=== PATIENT | female | born 2000 | race Caucasian/White ===

== ENCOUNTER 2024-07-16 10:23 | Outpatient (CLI) | payer MEDICAID, SELFPAY ==
[2024-07-16] VITALS (8 sets, daily range): BP systolic 109–143; BP diastolic 58–81; PULSE 81–86; BMI 44.4
--- NOTE | 2024-07-16 10:34 | XR_ITS ---
Examination: Biophysical profile, ultrasound Date and time of exam: July 16, 2024 1141 hours INDICATIONS: Amniotic fluid index 5.5 cm on examination July 14, 2024 Technique: Multiple transabdominal sonographic images of the pelvis abdomen obtained. Attention is directed to the breathing movement, gross body movement, amniotic fluid volume and tone. Findings: Amniotic fluid index 7.9 cm Total biophysical profile is 8 of 8. breathing movement is 2. Gross body movement is 2. tone is 2. Qualitative amniotic fluid volume is 2 Impression: Biophysical profile is 8 of 8.
[2024-07-16 11:42] LABS: Collection Type, Urine Clean Catch
[2024-07-16 11:45] LABS: Basophils # (Auto) 0.1 Thou/mm3 (0.0-0.2); Basophils % (Auto) 1 % (0-2.5); Eosinophils # (Auto) 0.4 Thou/mm3 (0.0-0.5); Eosinophils % (Auto) 3 % (0-10); Hematocrit 32.8 % (36.0-46.0); Hemoglobin 11.2 g/dL (12.0-16.0); Immature Granulocytes % (Auto) 0 % (0-0); Immature Granulocytes Auto 0.04 Thou/mm3 (0.00-0.00); Lymphocytes % (Auto) 17 % (10-50); Mean Corpuscular HGB Conc 34.1 g/dl (31.0-37.0); Mean Corpuscular Volume 91 fL (80-100); Monocytes # (Auto) 1.1 Thou/mm3 (0.0-0.8); Monocytes % (Auto) 9 % (0-12); Neutrophils # (Auto) 8.3 Thou/mm3 (1.8-7.7); Neutrophils % (Auto) 70 % (37-80); Nucleated Red Blood Cell % 0 /100 WBC (0); Platelet Count 185 Thou/mm3 (140-440); RDW Standard Deviation 44.7 fL (36.4-46.3); Red Blood Count 3.61 Miln/mm3 (4.00-5.20); White Blood Count 11.8 Thou/mm3 (3.6-11.0)
[2024-07-16 11:59] LABS: Fibrinogen 439 mg/dL (175-375); INR 0.9 (0.9-1.3); Partial Thromboplastin Time 26.4 Seconds (22.0-36.0); Prothrombin Time 10.3 Seconds (9.0-12.2)
[2024-07-16 12:00] LABS: Bilirubin,Urine Negative (Negative); Blood,Urine Negative (Negative); Clarity,Urine Clear (Clear/Hazy); Color,Urine Lt-Yellow (Lt Yel-Yel); Glucose, Urine Negative (Negative); Ketones,Urine Negative (Negative); Leukocyte Esterase,Urine Positive (Negative); Nitrite,Urine Negative (Negative); Protein,Urine Negative (Neg - Trace); RBC,Urine 1 /hpf (0-3); Specific Gravity,Urine 1.016 (1.001-1.035); Squamous Epithelial Cell,Urine 3 /hpf (0-5); Urobilinogen,Urine Negative mg/dL (0.0-1.0); WBC,Urine 1 /hpf (0-5)
[2024-07-16 12:11] LABS: Alanine Aminotransferase < 7 U/L (10-49); Albumin, Serum 3.7 gm/dL (3.5-5.0); Albumin/Globulin Ratio 1.7 (1.2-2.2); Alkaline Phosphatase 113 U/L (46-116); Anion Gap 8 (7-16); Aspartate Amino Transferase 14 U/L (0-34); BUN/Creatinine Ratio 14 Ratio (12-20); Bilirubin,Total 0.4 mg/dL (0.3-1.2); Blood Urea Nitrogen 11 mg/dL (9-23); Calcium 9.2 mg/dL (8.3-10.6); Calcium (Corrected) 9.4 mg/dL (8.5-10.1); Carbon Dioxide 23.1 mMol/L (20.0-31.0); Chloride 105 mMol/L (98-107); Creatinine (Component) 0.8 mg/dL (0.6-1.3); Estimated Creatinine Clearance 107.1 mL/min (>60); Globulin 2.2 gm/dL (2.3-3.5); Glucose 76 mg/dL (74-106); LDH (Lactate Dehydrogenase) 155 U/L (120-246); Osmolality,Calculated 270 (275-295); Sodium 136 mMol/L (136-145); Total Protein 5.9 gm/dL (5.7-8.2); Uric Acid 7.8 mg/dL (3.1-7.8); eGFR > 60 See Note
== END 2024-07-16 12:25 | disposition home or self-care (01) ==
LOC: S4S1 10:30 → S4SX 10:30
PROVIDERS: Nurse Practitioner Women's Health; Referring Provider Obstetrics & Gynecology; Visit Provider Obstetrics & Gynecology
DX: Z34.03 Encounter for supervision of normal first pregnancy, third trimester (principal); Z36.89 Encounter for other specified antenatal screening; Z3A.37 37 weeks gestation of pregnancy
CPT/HCPCS: 36415; 59025; 76819; 80053; 81001; 83615; 84550; 85025; 85384; 85610; 85730

== ENCOUNTER 2024-07-27 09:14 | Outpatient (RCR) | payer MEDICAID, SELFPAY ==
--- NOTE | 2024-07-07 09:14 | XR_ITS ---
Examination: Biophysical profile, ultrasound Date and time of exam: July 07, 2024 1012 hours INDICATIONS: Diagnosis maternal obesity Technique: Multiple transabdominal sonographic images of the pelvis abdomen obtained. Attention is directed to the breathing movement, gross body movement, amniotic fluid volume and tone. Findings: Amniotic fluid index 11.2 cm Total biophysical profile is 8 of 8. breathing movement is 2. Gross body movement is 2. tone is 2. Qualitative amniotic fluid volume is 2 Impression: Biophysical profile is 8 of 8.
[2024-07-07 10:43] VITALS: BP 130/76; PULSE 110; RESP 16; TEMP 36.7
--- NOTE | 2024-07-14 08:18 | XR_ITS ---
Examination: Biophysical profile, ultrasound Date and time of exam: July 14, 2024 0823 hours INDICATIONS: Diagnosis maternal obesity Technique: Multiple transabdominal sonographic images of the pelvis abdomen obtained. Attention is directed to the breathing movement, gross body movement, amniotic fluid volume and tone. Findings: Amniotic fluid index 5.5 cm Total biophysical profile is 8 of 8. breathing movement is 2. Gross body movement is 2. tone is 2. Qualitative amniotic fluid volume is 2 Impression: Biophysical profile is 8 of 8.
[2024-07-14 08:49] VITALS: BP 125/69; PULSE 85; RESP 16; TEMP 36.8
--- NOTE | 2024-07-20 11:30 | XR_ITS ---
Examination: Biophysical profile, ultrasound Date and time of exam: July 20, 2024 1132 hrs. Indications: Diagnosis maternal obesity, small for gestational age Technique: Multiple transabdominal sonographic images of the pelvis abdomen obtained. Attention is directed to the breathing movement, gross body movement, amniotic fluid volume and tone. Findings: Amniotic fluid index 7.7 cm Total biophysical profile is 8 of 8. breathing movement is 2. Gross body movement is 2. tone is 2. Qualitative amniotic fluid volume is 2 Impression: Biophysical profile is 8 of 8.
[2024-07-20 12:00] VITALS: BP 132/07; PULSE 91; RESP 20; TEMP 37.2
--- NOTE | 2024-07-27 09:55 | XR_ITS ---
Examination: Biophysical profile, ultrasound Date and time of exam: July 27, 2024 0959 hrs. Indications: Diagnosis maternal obesity, small for gestational age Technique: Multiple transabdominal sonographic images of the pelvis abdomen obtained. Attention is directed to the breathing movement, gross body movement, amniotic fluid volume and tone. Findings: Amniotic fluid index 4.8 cm Total biophysical profile is 6 of 8. breathing movement is 2. Gross body movement is 2. tone is 2. Qualitative amniotic fluid volume is 0 Impression: Biophysical profile is 6 of 8.
[2024-07-27 10:38] VITALS: BP 132/62; PULSE 104; RESP 18; TEMP 37.2
== END 2024-07-27 23:59 | disposition home or self-care (01) ==
LOC: S4S1 09:14
PROVIDERS: PCP Physician Assistant; Referring Provider Nurse Practitioner Women's Health; Visit Provider Nurse Practitioner Women's Health
DX: O99.213 Obesity complicating pregnancy, third trimester (principal); E66.9 Obesity, unspecified; Z3A.38 38 weeks gestation of pregnancy
CPT/HCPCS: 59025; 76819

== ENCOUNTER 2024-07-27 10:50 | Inpatient (IN) | payer MEDICAID, SELFPAY ==
[2024-07-27] VITALS (14 sets, daily range): BP systolic 92–153; BP diastolic 55–101; PULSE 79–111; BMI 44.9
[2024-07-27] MEDS: RINGERS LACTATED 1000 ML 1,000 ML 100 ML IV (11:34)
[2024-07-27 11:35] LABS: Basophils % (Auto) 0 % (0-2.5); Eosinophils # (Auto) 0.3 Thou/mm3 (0.0-0.5); Eosinophils % (Auto) 3 % (0-10); Hematocrit 35.1 % (36.0-46.0); Immature Granulocytes % (Auto) 0 % (0-0); Immature Granulocytes Auto 0.03 Thou/mm3 (0.00-0.00); Lymphocytes # (Auto) 1.5 Thou/mm3 (1.0-4.8); Lymphocytes % (Auto) 16 % (10-50); Mean Corpuscular HGB Conc 34.2 g/dl (31.0-37.0); Mean Corpuscular Hemoglobin 31.2 pg (25.0-35.0); Mean Corpuscular Volume 91 fL (80-100); Monocytes # (Auto) 0.7 Thou/mm3 (0.0-0.8); Monocytes % (Auto) 8 % (0-12); Neutrophils # (Auto) 6.9 Thou/mm3 (1.8-7.7); Neutrophils % (Auto) 72 % (37-80); Nucleated Red Blood Cell % 0 /100 WBC (0); Platelet Count 184 Thou/mm3 (140-440); RDW Standard Deviation 45.2 fL (36.4-46.3); Red Blood Count 3.85 Miln/mm3 (4.00-5.20); White Blood Count 9.6 Thou/mm3 (3.6-11.0)
--- NOTE | 2024-07-27 11:40 | ESHP_ITS ---
Documentation for date of: 07/27/24 OB Labor/Induct. HPI History of Present Illness Chief complaint: 24 y/o 38w 4d presents to L&D for IOL due to Oligohydraminos : 1 Para: 0 Term pregnancies: 0 pregnancies: 0 Living children: 0 History of Abortions: Spontaneous and Elective: 0 History of Vaginal deliveries: 0 History of sections: No History of : No TEREZA: 08/06/24 Gestational Age (weeks): 38 Gestational Age (days): 4 Indication for induction: medical complication (Oligohydramnios) History of present illness: 24 y/o 38w 4d presents to L&D for IOL due to Oligohydraminos. Pt's has been complicated by Asthma, Major depressive disorder, Bipolar I and schizoaffective disorder. Pt is under psychiatric care, however has discontinued all her antipsychotic medications due to and her mood has been stable throughout the . Pt has been seeing Dr. Jeremy MARIANO and there they did note a bilateral UTD and fetus is SGA, growth at 16%ile. Pt has been having weekly NST/BPP. Today's BPP is 6/8 due to PABLITO being low. GBS is positive. EFW 2800g History of Present Dating criteria: LMP confirmed by 1st trimester US Adequate Care: Yes Ultrasounds: normal 1st trimester US and normal mid trimester US Obstetrical complications: other (Oligohydraminos, psychiatric disorders, asthma and SGA fetus ) Labs Maternal Blood Type: A Pos Labs: Positive: Rubella Titre and Group Beta Strep, Negative: RPR, Hepatitis B, HIV, Chlamydia and Gonorrhea and Unknown: Herpes Type 1, Herpes Type 2 and Covid-19 Review of Systems Review of Systems Systems Reviewed: All systems reviewed, normal except as documented Past Medical History Surgical History SURGICAL: Negative Section Meds Home Medications and Allergies Home Medications ?Medication ?Instructions ?Recorded ?Confirmed ?Type opsagdhd-tpy-Fs-FA 1 mg 2 tab PO DAILY 07/16/24 07/16/24 History tablet Allergies Allergy/AdvReac Type Severity Reaction Status Date / Time gold Au 198 Allergy Intermediate RED,SWELLIN Verified 07/06/24 13:53 G milk AdvReac Intermediate CRAMPING,DI Verified 07/06/24 13:53 ARRHEA OB Exam Physical Exam Vital signs: Pulse BP 108 H 131/101 H 07/27/24 11:09 07/27/24 11:09 Constitutional Constitutional: no acute distress Routine HEENT Exam Head: Present normocephalic and atraumatic Eye: Present EOMI, PERRL and normal accommodation ENT: Present mucous membranes moist Routine Neck Exam Neck: Present supple, full ROM and trachea midline Routine Cardiovascular Exam Cardiovascular: Present RRR Routine Abdominal Exam Abdominal: Present soft Comments: Gravid Uterus EFW 2800g Routine Exam External: Present normal urethra appearance; Absent lesions Detailed Labor and Delivery Exam Dilation (cm): FT Effacement (%): Thick Cervix position: posterior station: -3 Consistency: medium Membranes: intact Baseline heart rate: 130 monitor accelerations: 15x15 monitor decelerations: None FPC variability: Moderate (11-25) Contraction frequency (min): None Routine Extremities Exam Extremities: Present full ROM Routine Back/Spine/Pelvis Exam Back/Spine: Present full ROM Routine Skin Exam Skin: Present intact, dry and warm Routine Neurological Exam Neurological: Present alert, oriented X3 and CN II-XII intact Routine Psychiatric Exam Psychiatric: Present normal affect and normal thought process OB Results Labs 07/27/24 11:11 07/27/24 18:43 OB Assessment & Plan Assessment and Plan (1) Encounter for induction of labor: Status: Acute (2) Oligohydramnios: Status: Acute (3) Small for gestational age fetus affecting management of mother in schmidt in third trimester: Status: Acute (4) with 38 completed weeks gestation: Status: Acute (5) Schizoaffective disorder: Status: Acute Additional Plan Induction method: other (Cervidil) Plan: induction, anticipate NVD, GBS prophylaxis tx and consult MD prn Additional Plan Comment: Routine admit orders US to confirm presentation and EFW Continuous EFM (2) Oligohydramnios Qualifiers: Fetus number: single or unspecified fetus Trimester: third trimester Q ualified Code(s): O41.03X0 - Oligohydramnios, third trimester, not applicable or unspecified (5) Schizoaffective disorder Qualifiers: Schizoaffective disorder type: depressive Qualified Code(s): F25.1 - Schizoaffective disorder, depressive type
--- NOTE | 2024-07-27 12:03 | XR_ITS ---
Examination: age Limited Technique: Limited transabdominal sonographic images pelvis Exam date and time: 02/25/2024 1217 hrs. Indications: Pelvic pressure with urinating beginning one week ago. Findings: Viable intrauterine gestation cephalic presentation Estimated weight 2995.1 g Cardiac motion 148 BPM Estimated gestational age 37 weeks 1 day Impression: Viable intrauterine gestation cephalic presentation
[2024-07-27 12:15] LABS: Syphilis Nonreactive (Nonreactive)
[2024-07-27 14:34] LABS: Amphetamine/Metham Scrn,Ur OB Negative (Negative); Benzoylecgonine Screen, Ur OB Negative (Negative); Opiate Screen,Urine OB Negative (Negative); THC Screen,Urine OB Negative (Negative)
[2024-07-27] MEDS: DINOPROSTONE 10 MG VAG.SUPP VAGINAL (15:18)
[2024-07-27] MEDS: PANTOPRAZOLE 40 MG TABLET PO (18:08)
[2024-07-27] MEDS: ACETAMINOPHEN 325 MG TABLET 650 MG PO (18:23)
[2024-07-27 19:03] LABS: Collection Type, Urine Voided
[2024-07-27 19:39] LABS: Alanine Aminotransferase < 7 U/L (10-49); Albumin, Serum 3.7 gm/dL (3.5-5.0); Albumin/Globulin Ratio 1.8 (1.2-2.2); Alkaline Phosphatase 128 U/L (46-116); Anion Gap 8 (7-16); Aspartate Amino Transferase 15 U/L (0-34); BUN/Creatinine Ratio 15 Ratio (12-20); Bilirubin,Total 0.3 mg/dL (0.3-1.2); Blood Urea Nitrogen 12 mg/dL (9-23); Calcium 9.4 mg/dL (8.3-10.6); Calcium (Corrected) 9.6 mg/dL (8.5-10.1); Carbon Dioxide 23.2 mMol/L (20.0-31.0); Chloride 108 mMol/L (98-107); Creatinine (Component) 0.8 mg/dL (0.6-1.3); Estimated Creatinine Clearance 107.8 mL/min (>60); Globulin 2.1 gm/dL (2.3-3.5); Glucose 108 mg/dL (74-106); Osmolality,Calculated 278 (275-295); Potassium 3.8 mMol/L (3.4-5.1); Sodium 139 mMol/L (136-145); Total Protein 5.8 gm/dL (5.7-8.2); Uric Acid 7.7 mg/dL (3.1-7.8); eGFR > 60 See Note
[2024-07-27 19:48] LABS: Bacteria,Urine Rare; Bilirubin,Urine Negative (Negative); Blood,Urine Negative (Negative); Clarity,Urine Clear (Clear/Hazy); Color,Urine Lt-Yellow (Lt Yel-Yel); Glucose, Urine Negative (Negative); Ketones,Urine Negative (Negative); Leukocyte Esterase,Urine Positive (Negative); Nitrite,Urine Negative (Negative); PH,Urine 6.5 (5.0-7.0); Protein,Urine Negative (Neg - Trace); RBC,Urine < 1 /hpf (0-3); Specific Gravity,Urine 1.017 (1.001-1.035); Squamous Epithelial Cell,Urine 1 /hpf (0-5); Urobilinogen,Urine Negative mg/dL (0.0-1.0); WBC,Urine 1 /hpf (0-5)
[2024-07-27] MEDS: fentaNYL CIT INJ 50 mCg/ML AMP 2ML 100 MCG IV (20:48)
[2024-07-27 20:55] LABS: Fibrinogen 439 mg/dL (175-375); INR 0.9 (0.9-1.3); Partial Thromboplastin Time 25.7 Seconds (22.0-36.0); Prothrombin Time 10.2 Seconds (9.0-12.2)
[2024-07-27] MEDS: hydrOXYzine HCL 25 MG TABLET 50 MG PO (22:22)
[2024-07-28] VITALS (12 sets, daily range): BP systolic 91–127; BP diastolic 49–78; PULSE 76–110; RESP 13–20; TEMP 36.7–37.3; O2SAT 96–99
[2024-07-28] MEDS: ceFAZolin/D5W 2 GM IV 2 GM/100 ML BAG IV (07:37)
[2024-07-28] MEDS: METOCLOPRAMIDE INJ 5 MG/ML VIAL 2 ML 10 MG IVP (07:38)
[2024-07-28] MEDS: FAMOTIDINE INJ 10 MG/ML VIAL 2 ML 20 MG IV (07:38)
--- NOTE | 2024-07-28 07:50 | ESOP_ITS ---
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 Identity was confirmed by double identifiers and she was placed on the operating table. Spinal anesthesia was administered and she was positioned in the supine position. The abdomen and perineum were prepped in the usual sterile fashion and a Guzmán catheter was placed to continuous drainage. Sterile drapes were applied. The incision site was tested for adequacy of anesthesia. A Pfannenstiel skin incision was made with a scalpel and carried to the subcutaneous fat up to the rectus fascia. The rectus fascia was incised on either side of the midline and the incisions were extended bilaterally. The fascia was gently dissected off the ventral surface of the rectus muscle both superiorly and inferiorly. The rectus bellies were gently in the midline and the peritoneum was identified and entered bluntly using the surgeon's finger. The peritoneal opening was now stretched to create an adequate opening for access to the uterus. Vamsi O-ring retractor was placed for adequate visualization. The anterior surface of the uterus was palpated. The bladder reflection was identified and a Ronnie Portillo low transverse uterine incision was made in the lower uterine segment taking care to avoid the bladder. Uterine entry was accomplished bluntly and the opening was stretched to create adequate room. The amniotic membranes were now ruptured and clear amniotic fluid was released. The fetus was noted to be in the vertex position. The head was gently elevated out of the maternal pelvis and single loop of nuchal cord was found around the neck. The cord was released and the rest of the shoulders and body were delivered by gentle fundal pressure. Umbilical cord was doubly clamped, divided and the infant was handed over to the waiting team. Cord gas samples were obtained. The placenta was delivered by gentle traction on the umbilical cord. The interior of the uterus was now thoroughly cleaned of all blood and debris and membranes. The hysterotomy angles were grasped by a pair of Allis clamps and the hysterotomy was closed using 1 Monocryl suture in 2 layers. The first layer was used to approximate the muscle in a running locked fashion, the second layer was used to approximate the thickness of the myometrium and uterine serosa in an imbricated manner. Once the repair was completed the hysterotomy was inspected and noted to be adequately hemostatic. The hysterotomy was once again inspected and hemostasis was noted to be satisfactory. The Vamsi retractor was now removed. The peritoneal edges were re approximated. The rectus muscles were re approximated. The rectus fascia was now repaired using 0 Vicryl suture in a running fashion. The subcutaneous layer was now copiously irrigated using warm normal saline. All bleeding points were cauterized using the Bovie. The subcutaneous fat was closed using 3-0 Vicryl. The skin was closed using 4-0 Monocryl in a subcuticular fashion. The skin was cleaned and a sterile dressing was applied. The patient was now undraped, the abdomen and back were thoroughly cleaned and she was transferred to the recovery room in a stable and awake condition. The patient tolerated the entire procedure well. No complications were encountered. All instrument, sponge and lap counts were correct x2. Estimated blood loss (ml): 600 Complications: none Diagnosis Discharge Diagnosis (1) Small for gestational age fetus affecting management of mother in schmidt in third trimester: Status: Acute (2) Schizoaffective disorder: Status: Acute (3) Oligohydramnios: Status: Acute (4) with 38 completed weeks gestation: Status: Acute Problem List Completed Was Problem List Reviewed/Reconciled?: Yes (2) Schizoaffective disorder Qualifiers: Schizoaffective disorder type: depressive Qualified Code(s): F25.1 - Schizoaffective disorder, depressive type (3) Oligohydramnios Qualifiers: Fetus number: single or unspecified fetus Trimester: third trimester Qualified Code(s): O41.03X0 - Oligohydramnios, third trimester, not applicable or unspecified
--- NOTE | 2024-07-28 08:36 | PD.LDDELS ---
Data (Vann) Data Hx Section: No : 1 Para: 0 Term: 0 : 0 : 0 Delivery Data (Vann) Labor Data ROM Date: 07/28/24 ROM Time: 08:19 Rupture Type: AROM Amniotic Fluid: Clear Delivery Data Labor Onset Stage 1 Date: 07/28/24 Labor Onset Stage 1 Time: 08:19 Labor Onset Stage 2 Date: 07/28/24 Labor Onset Stage 2 Time: 08:19 Delivery Date: 07/28/24 Delivery Time: 08:19 Placenta Delivery Date: 07/28/24 Placenta Delivery Time: 08:19 Delivered by: Boston Richardson Delivery nurse: Radha Chang Other staff at delivery: Nursery Nurse Other staff at delivery: SIXTO Other staff at delivery: First Duncan Other staff at delivery: Myah Neff Other staff at delivery: Rene Gallego Other staff at delivery: Majo Willard Delivery Method Delivery: Delivery Type: Primary Anesthesia Type Primary Anesthesia: Spinal Data (Vann) Data Infant Gender: Male Weight Grams: 2660 1 Minute Total: 9 5 Minute Total: 9
[2024-07-28] MEDS: OXYTOCIN in NS 20 units 20 UNIT/1,000 ML BAG 125 UNIT IV ×2 (09:23→13:33)
--- NOTE | 2024-07-28 09:30 | PC.NURSE ---
Recovery cut 1 hour short per charge nurse Audra To RN
[2024-07-28] MEDS: HYDROcodone/APAP 5/325 TABLET 2 TAB PO ×2 (13:24→23:09)
[2024-07-28] MEDS: KETOROLAC INJ 30 MG/ML VIAL IVP (20:38)
--- NOTE | 2024-07-28 21:48 | PD.LDDS ---
DS: Providers Provider Date of admission: 07/27/24 10:50 Primary care physician: Adrián Caraballo PA-C Admitting Provider: Deyanira Kelly CNM Attending Provider on Admission: Boston Richardson MD Consults: 07/28/24 08:28 Referral Routine Comment: Attending Provider on DC: Boston Richardson MD Discharging Provider: Boston Richardson MD DS: Diagnosis Problem List Completed Was Problem List Reviewed/Reconciled?: Yes Summary/Hosp Course Brief History: 24 y/o 38w 4d presents to L&D for IOL due to Oligohydraminos. Pt's has been complicated by Asthma, Major depressive disorder, Bipolar I and schizoaffective disorder. Pt is under psychiatric care, however has discontinued all her antipsychotic medications due to and her mood has been stable throughout the . Pt has been seeing Dr. Jeremy MARIANO and there they did note a bilateral UTD and fetus is SGA, growth at 16%ile. Pt has been having weekly NST/BPP. Today's BPP is 6/8 due to PABLITO being low. GBS is positive. EFW 2800g Peripartum Data Procedures: Procedures Operation Date: 07/28/24 07:45 Actual Procedure Side Surgeon p in OB Boston Richardson MD Time Spent with Patient Time attestation: Total time spent providing and/or coordinating discharge services: Exam Vital Signs Temp Pulse Resp BP Pulse Ox O2 Del Method 99.1 F 110 H 18 109/66 96 Room Air 07/28/24 20:30 07/28/24 20:30 07/28/24 20:30 07/28/24 20:30 07/28/24 20:30 07/28/24 20:30 Discharge Plan Plan Patient Disposition: HOME (Self Care) Patient condition on transfer: Stable Prescriptions/Referrals Prescriptions/Med Rec: New hydrocodone-acetaminophen 5-325 mg Tablet 1 tab PO Q6HR MDD 4 PRN (Reason: Patient rated pain 9 to 10) 5 Days Qty: 20 0RF docusate sodium 100 mg Capsule 100 mg PO QDAY 30 Days Qty: 30 0RF ibuprofen 400 mg Tablet 800 mg PO Q8HR PRN (Reason: Pain Scale 4-6 (Moderate) 10 Days Qty: 30 0RF Continued jdkqvhom-xwc-Wz-FA 1 mg Tablet 2 tab PO DAILY Referrals: Adrián Caraballo PA-C [Primary Care Provider] - Jeanne Diaz MD [Physician] - Deyanira Kelly CNM [Certified Nurse Solar Installation Supervisor] - Patient/Caregiver Discharge Instructions Meds to Beds: Yes Discharge Activity: activity as tolerated Education Materials: Healthy Weight Loss After , Breast Care After , After a , Section (), C Section Dc Print Language: Mohawk Stand Alone Forms: Kasia Award Info., Patient Portal Info Letter, DC from Surgery Planned Discharge Date 07/30/24
[2024-07-29] VITALS: BP 122/84; PULSE 100; RESP 18; TEMP 37; O2SAT 95
[2024-07-29 04:00] VITALS: BP 122/83; PULSE 96; RESP 18; TEMP 36.8; O2SAT 97
[2024-07-29] MEDS: IBUPROFEN TAB 400 MG TABLET 800 MG PO ×2 (04:03→17:06)
[2024-07-29] MEDS: HYDROcodone/APAP 5/325 TABLET 1 TAB PO (06:27)
[2024-07-29 06:28] LABS: Basophils # (Auto) 0.1 Thou/mm3 (0.0-0.2); Basophils % (Auto) 1 % (0-2.5); Eosinophils # (Auto) 0.3 Thou/mm3 (0.0-0.5); Eosinophils % (Auto) 2 % (0-10); Hematocrit 30.8 % (36.0-46.0); Hemoglobin 10.5 g/dL (12.0-16.0); Immature Granulocytes % (Auto) 0 % (0-0); Immature Granulocytes Auto 0.04 Thou/mm3 (0.00-0.00); Lymphocytes # (Auto) 2.3 Thou/mm3 (1.0-4.8); Lymphocytes % (Auto) 23 % (10-50); Mean Corpuscular HGB Conc 34.1 g/dl (31.0-37.0); Mean Corpuscular Hemoglobin 31.7 pg (25.0-35.0); Mean Corpuscular Volume 93 fL (80-100); Monocytes % (Auto) 9 % (0-12); Neutrophils # (Auto) 6.8 Thou/mm3 (1.8-7.7); Neutrophils % (Auto) 65 % (37-80); Nucleated Red Blood Cell % 0 /100 WBC (0); Platelet Count 142 Thou/mm3 (140-440); RDW Standard Deviation 46.4 fL (36.4-46.3); Red Blood Count 3.31 Miln/mm3 (4.00-5.20); White Blood Count 10.4 Thou/mm3 (3.6-11.0)
--- NOTE | 2024-07-29 08:22 | PD.LDPPPRG ---
Subjective Subjective Interval history: Delivery type: Patient doing well this morning. No acute complaints. Ambulating, tolerating p.o. and voiding without difficulty. HTN/Pre-Eclampsia screen: No chest pain, shortness of breath, headache, visual changes, epigastric or right upper quadrant pain. Breast-feeding, lochia diminishing. Bowel: Flatus+ Exam Vital Signs Temp Pulse Resp BP Pulse Ox O2 Del Method 98.2 F 96 18 122/83 97 Room Air 07/29/24 04:00 07/29/24 04:00 07/29/24 04:00 07/29/24 04:00 07/29/24 04:00 07/29/24 04:00 Constitutional Constitutional: no acute distress Routine HEENT Exam Head: Present normocephalic and atraumatic Eye: Present EOMI and PERRL ENT: Present mucous membranes moist Routine Neck Exam Neck: Present supple and trachea midline Routine Respiratory Exam Respiratory: Present chest non-tender, lungs clear, normal breath sounds and no resp distress Routine Cardiovascular Exam Cardiovascular: Present RRR Routine Abdominal Exam Abdominal: Present soft and normoactive bowel sounds Routine Extremities Exam Extremities: Present full ROM Routine Skin Exam Skin: Present intact, dry and warm Routine Neurological Exam Neurological: Present alert, oriented X3 and CN II-XII intact Routine Psychiatric Exam Psychiatric: Present normal affect and normal thought process Objective Labs 07/29/24 06:00 07/27/24 18:43 Labs: Laboratory Results - last 24 hr 07/29/24 06:00 WBC 10.4 RBC 3.31 L Hgb 10.5 L Hct 30.8 L MCV 93 MCH 31.7 MCHC 34.1 RDW Std Deviation 46.4 H Plt Count 142 D Neut % (Auto) 65 Lymph % (Auto) 23 [place] % (Auto) 9 Eos % (Auto) 2 Baso % (Auto) 1 Neut # (Auto) 6.8 Lymph # (Auto) 2.3 [place] # (Auto) 1.0 H Eos # (Auto) 0.3 Baso # (Auto) 0.1 Immature Gran # (Auto) 0.04 H Absolute Nucleated RBC 0.00 Immature Gran % 0 Nucleated RBC % 0 Assessment & Plan Problem List (1) Small for gestational age fetus affecting management of mother in schmidt in third trimester: Status: Acute (2) Schizoaffective disorder: Status: Acute (3) Oligohydramnios: Status: Acute (4) with 38 completed weeks gestation: Status: Acute Assessment and plan: 1. Continue routine /post-op care 2. Labs reviewed, cbc appropriate 3. Remove dressing/Guzmán 4. Encourage to ambulate, shower 5. Encourage PO intake, breast feeding Time Spent With Patient Time: Total time spent is greater than 50% in coordination of care (as documented) at patient's floor/unit and/or counseling patient:
[2024-07-29 08:31] VITALS: BP 117/80; PULSE 80; RESP 18; TEMP 36.8; O2SAT 97
[2024-07-29] MEDS: DOCUSATE SOD 100 MG CAPSULE PO (09:13)
--- NOTE | 2024-07-29 12:05 | PC.SS ---
LITHOGRAPH PRESS FEEDER conducted bedside contact with the patient to address nursing referral indicating patient possessed history of mental health. LITHOGRAPH PRESS FEEDER introduced self, role and basis of referral. Present at bedside with the patient was FOB, Adolfo Ariza. Patient gave permission for FOB to be present during discussion. Patient confirmed possessing a history of mental health. Patient has a diagnosis of Bi-Polar Disorder. Patient reports prescription for psychotropic medication. Patient ceased use of medication due to . Patient is aligned with psychiatry services through [facility]. Patient informed LITHOGRAPH PRESS FEEDER that mental health provider aware patient has ceased medications due to . Patient to meet with psychiatrist to discuss re-starting medication the will not interfere with patient?s plan to breast feed ([place]). Patient denies current intent/plan of SI/HI. is the first child for the patient. delivered via . Patient resides with FOB. Patient is aligned with WIC and SNAP. Patient not receiving TANF. Patient denies history of alcohol/drug abuse. Patient denies CWS intervention. Patient denies episodes of domestic violence. OB services provided by Deyanira Kelly. Patient has access to appropriate supplies and equipment; to include a car seat. FOB will provide transportation upon discharge. Patient describes possessing support system consisting of FOB and extended family. LITHOGRAPH PRESS FEEDER provided the patient with community resources to include [employer] [employer] and Warm Line. No further intervention required at this time, web content & social media manager will be available to address any further concerns. LITHOGRAPH PRESS FEEDER updated bedside nurse.
[2024-07-29] MEDS: HYDROcodone/APAP 5/325 TABLET 2 TAB PO (12:21)
[2024-07-29 16:02] VITALS: BP 134/83; PULSE 97; RESP 16; TEMP 36.4; O2SAT 97
[2024-07-29 20:30] VITALS: BP 119/68; PULSE 100; RESP 18; TEMP 37.1; O2SAT 97
--- NOTE | 2024-07-29 22:00 | XR_ITS ---
Examination: Venous duplex lower extremity sonogram, bilateral. Date and time of exam: July 29, 2024 1116 hrs. Indications: Bilateral leg swelling one day post Technique: Multiple sonographic images of the deep venous system have been obtained. B-mode/2-D grayscale imaging of vascular structures and Doppler spectral analysis (waveforms) and color performed Both legs are examined. Findings: Deep venous systems do not demonstrate abnormal echogenicity. All visualized deep veins exhibit compressibility. All visualized deep veins exhibit augmentation. Impression: Negative for deep vein thrombosis
--- NOTE | 2024-07-29 22:56 | XR_ITS ---
Examination: CTA chest with intravenous contrast 2-D reconstructions 3-D reconstructions, vascular Date and time of exam: July 30, 2024 at 0008 hours INDICATIONS: Shortness of breath chest pain today, patient is post CTDI: vol (mGy) 13.9 DLP: (mGycm) 531 Technique: Multiple axial sections of the thorax have been obtained. 3 mm slice thickness, from below the hemidiaphragms to above the apices of the lungs. Mediastinal and lung density settings have been obtained. 2-D sagittal and coronal reconstructions. 3-D angiographic renderings, 3-D volume renderings, 3D post processing, vascular maximum intensity projections obtained. Contrast administered is 100 cc Isovue-370. Intravenous Low dose protocols were performed. One or more of the following dose reduction techniques were used; automated exposure control, adjustment of the mA and/or KV according to patient size, use of iterative reconstruction technique. Findings: No thoracic aortic aneurysm dilatation Pulmonary artery opacification is relatively poor No filling defects in the pulmonary arteries No paratracheal tracheobronchial or bronchopulmonary adenopathy No pneumonia, pulmonary edema. Minimal left pleural disease Partially visualized hepatosplenomegaly No gallstones No pancreatic mass Kidneys partially visualized no hydronephrosis IMPRESSION: Negative for pulmonary artery emboli
--- NOTE | 2024-07-29 23:00 | PC.NURSE ---
Addendum entered by Barb Robles RN, RN 07/29/24 23:23: 2320 US tech in to do venous doppler. Original Note: 2229 rn called US ext [phone] no answer, left message 2249 house sup called spoke with Yany. she will call ultrasound regarding STAT order
[2024-07-29 23:35] LABS: D-Dimer 701 ng/mL (<600)
[2024-07-30 00:23] VITALS: BP 128/87; PULSE 100; RESP 18; TEMP 37.2; O2SAT 97
--- NOTE | 2024-07-30 02:49 | PC.NURSE ---
07/30/2023 @ [address] called. results pending.
[2024-07-30] MEDS: IBUPROFEN TAB 400 MG TABLET 800 MG PO (05:00)
[2024-07-30 05:12] VITALS: BP 103/69; PULSE 98; RESP 18; TEMP 37.2; O2SAT 98
[2024-07-30 07:56] VITALS: BP 115/71; PULSE 94; RESP 16; TEMP 36.7; O2SAT 98
[2024-07-30] MEDS: ENOXAPARIN SOD INJ 40 MG/0.4 ML SYRINGE SC (08:26)
[2024-07-30] MEDS: DOCUSATE SOD 100 MG CAPSULE PO (08:26)
--- NOTE | 2024-07-30 08:30 | PD.LDPPPRG ---
Subjective Subjective Interval history: Delivery type: Patient doing well this morning. No acute complaints. Ambulating, tolerating p.o. and voiding without difficulty. HTN/Pre-Eclampsia screen: No chest pain, shortness of breath, headache, visual changes, epigastric or right upper quadrant pain. Breast-feeding, lochia diminishing. Bowel: Flatus+/ BM+ Exam Vital Signs Temp Pulse Resp BP Pulse Ox O2 Del Method 98.1 F 94 16 115/71 98 Room Air 07/30/24 07:56 07/30/24 07:56 07/30/24 07:56 07/30/24 07:56 07/30/24 07:56 07/30/24 07:56 Constitutional Constitutional: no acute distress Routine HEENT Exam Head: Present normocephalic and atraumatic Eye: Present EOMI and PERRL ENT: Present mucous membranes moist Routine Neck Exam Neck: Present supple and trachea midline Routine Respiratory Exam Respiratory: Present chest non-tender, lungs clear, normal breath sounds and no resp distress Routine Cardiovascular Exam Cardiovascular: Present RRR Routine Abdominal Exam Abdominal: Present soft and normoactive bowel sounds Routine Extremities Exam Extremities: Present full ROM Routine Skin Exam Skin: Present intact, dry and warm Routine Neurological Exam Neurological: Present alert, oriented X3 and CN II-XII intact Routine Psychiatric Exam Psychiatric: Present normal affect and normal thought process Objective Labs 07/29/24 06:00 07/27/24 18:43 Labs: Laboratory Results - last 24 hr 07/29/24 23:10 D-Dimer 701 H Assessment & Plan Problem List (1) Small for gestational age fetus affecting management of mother in schmidt in third trimester: Status: Acute (2) Schizoaffective disorder: Status: Acute (3) Oligohydramnios: Status: Acute (4) with 38 completed weeks gestation: Status: Acute (5) delivery delivered: Status: Acute Assessment and plan: PPD/POD#2 1. Continue routine care 2. Transition to PO meds. 3. Encourage to ambulate/ breast-feed 4. Anticipate discharge home today. 5. DVT and PE workup was negative last night with slight elevation of D-dimer but negative imaging Time Spent With Patient Time: Total time spent is greater than 50% in coordination of care (as documented) at patient's floor/unit and/or counseling patient:
[2024-07-30 12:10] VITALS: BP 117/66; PULSE 88; RESP 18; TEMP 36.8; O2SAT 97
[2024-07-30 16:28] VITALS: BP 116/71; PULSE 85; RESP 17; TEMP 37.1; O2SAT 98
== END 2024-07-30 17:28 | disposition home or self-care (01) | DRG 540 ==
LOC: S4SX 07-28 00:08 → S4NX 07-28 08:15
PROVIDERS: Admitting Provider Nurse Practitioner Women's Health; PCP Physician Assistant; Visit Provider Obstetrics & Gynecology
PROC: 10D00Z1 Extraction of Products of Conception, Low, Open Approach (ICD-10-PCS; CPT 59514; principal; 2024-07-28 07:30)
DX: O41.03X0 Oligohydramnios, third trimester, not applicable or unspecified (principal); O99.344 Other mental disorders complicating childbirth; F25.1 Schizoaffective disorder, depressive type; F31.30 Bipolar disorder, current episode depressed, mild or moderate severity, unspecified; O36.5930 Maternal care for other known or suspected poor fetal growth, third trimester, not applicable or unspecified; O99.52 Diseases of the respiratory system complicating childbirth; F41.9 Anxiety disorder, unspecified; O69.81X0 Labor and delivery complicated by cord around neck, without compression, not applicable or unspecified; J45.909 Unspecified asthma, uncomplicated; Z37.0 Single live birth; Z3A.38 38 weeks gestation of pregnancy
CPT/HCPCS: 36415; 71275; 76815; 80053; 80307; 81001; 84550; 85025; 85379; 85384; 85610; 85730; 86780; 86850; 86900; 86901; 93970; A4649; J0689; J1650; J1885; J2274; J2371; J2590; J2765; J3010; J3490; J7120; Q9967; A9270; J2270